=== PATIENT | female | born 1945 | race Caucasian/White ===

== ENCOUNTER 2018-05-17 22:03 | Inpatient (IN) | payer OTHER, MEDICAID, BC, MEDICARE ==
[2018-05-17 22:42] LABS: ADD MAN DIFF? NO
[2018-05-17] MEDS: SODIUM CHLORIDE 0.9% 1L BAG IV* (22:56)
[2018-05-17 23:04] LABS: ADD UMIC YES; UR ASCORBIC ACID NEGATIVE (NEGATIVE); UR BACTERIA FEW /HPF (NONE SEEN); UR BILIRUBIN (Dip) NEGATIVE (NEGATIVE); UR BLOOD (Dip) 2+ mg/dL (NEGATIVE); UR CLARITY CLOUDY (CLEAR); UR COLOR YELLOW (YELLOW); UR GLUCOSE (Dip) NEGATIVE (NEGATIVE); UR KETONES (Dip) 2+ mg/dL (NEGATIVE); UR LEUKOCYTE ESTERASE (Dip) 3+ Leu/ul (NEGATIVE); UR MUCUS FEW /HPF (NONE SEEN); UR NITRITE (Dip) NEGATIVE (NEGATIVE); UR RBC 21 /HPF (0-5); UR SPECIFIC GRAVITY (Dip) 1.023 (1.003-1.030); UR SQUAMOUS EPITHELIAL CELL FEW /HPF (FEW); UR TOTAL PROTEIN (Dip) 2+ mg/dl (NEGATIVE); UR UROBILINOGEN (Dip) NEGATIVE (NEGATIVE); UR WBC > 182 /HPF (0-5)
[2018-05-17 23:07] LABS: LACTIC ACID 1.3 mmol/L (0.5-2.0)
[2018-05-17 23:08] LABS: ALBUMIN 3.8 g/dl (3.3-4.9); ALKALINE PHOSPHATASE 71 IU/L (42-121); ANION GAP 14 (8-16); ASPARTATE AMINO TRANSFERASE 31 IU/L (15-46); BILIRUBIN,INDIRECT 0.2 mg/dl (0-1.1); BILIRUBIN,TOTAL 0.2 mg/dl (0.2-1.3); BLOOD UREA NITROGEN 15 mg/dl (7-20); CALCIUM 8.8 mg/dl (8.4-10.2); CARBON DIOXIDE 24 mmol/L (21-31); CHLORIDE 107 mmol/L (97-110); CREATININE 0.29 mg/dl (0.44-1.00); GLUCOSE 92 mg/dl (70-220); PARTIAL THROMBOPLASTIN TIME 23.6 Sec (25.0-35.0); POTASSIUM 3.7 mmol/L (3.5-5.1); PROTIME 12.2 Sec (11.9-14.9); SODIUM 141 mmol/L (135-144); TOTAL PROTEIN 6.5 g/dl (6.1-8.1)
[2018-05-17 23:12] LABS: WHITE BLOOD COUNT 8.2 10^3/ul (4.8-10.8)
[2018-05-17 23:12] LABS: BASOPHILS % 0.2 % (0.0-2.0); EOSINOPHILS % 0.1 % (0.0-7.0); HEMATOCRIT 45.9 % (37.0-47.0); HEMOGLOBIN 14.6 g/dl (12.0-16.0); LYMPHOCYTES # 1.7 10^3/ul (0.8-2.9); LYMPHOCYTES % 20.4 % (15.0-51.0); MEAN CORPUSCULAR HEMOGLOBIN 32.2 pg (29.0-33.0); MEAN CORPUSCULAR HGB CONC 31.8 g/dl (32.0-37.0); MEAN CORPUSCULAR VOLUME 101.1 fl (82.0-101.0); MONOCYTE # 0.4 10^3/ul (0.3-0.9); MONOCYTES % 4.3 % (0.0-11.0); NEUTROPHIL # 6.1 10^3/ul (1.6-7.5); NEUTROPHILS % 74.8 % (39.0-77.0); PLATELET COUNT 278 10^3/UL (140-415); RED BLOOD COUNT 4.54 10^6/ul (4.20-5.40)
[2018-05-17 23:16] LABS: ALANINE AMINOTRANSFERASE 24 IU/L (13-69)
[2018-05-17 23:18] LABS: TROPONIN-I < 0.012 ng/ml (0.000-0.120)
[2018-05-18] MEDS: morphine 2 MG INJ IV ×4 (00:12→16:58)
[2018-05-18] MEDS: ONDANSETRON 4 MG INJ IV ×3 (00:12→17:06)
[2018-05-18] MEDS ORDERED: POTASSIUM CHLORIDE 100 ML IVPB (00:30)
[2018-05-18 00:46] LABS: LACTIC ACID 1.5 mmol/L (0.5-2.0)
[2018-05-18] MEDS: CEFTRIAXONE 1 GM/50 ML (PMX) 50 ML IVPB ×2 (01:08→08:16)
[2018-05-18] MEDS: VANCOMYCIN 1 GM (PMX) 250 ML IVPB (01:08)
[2018-05-18] MEDS: CEFEPIME 2GM/50 ML (PMX) 50 ML IVPB (01:15)
[2018-05-18] MEDS ORDERED: ALPRAZOLAM 0.25 MG TAB PO (03:00)
[2018-05-18] MEDS ORDERED: NACL 0.9% 3 ML SYG IV (03:00)
[2018-05-18] MEDS: DEXTROSE 5%-0.45% NACL 1,000 ML IV ×2 (03:15→17:28)
[2018-05-18 03:25] LABS: LACTIC ACID 0.7 mmol/L (0.5-2.0)
[2018-05-18 06:31] LABS: ADD MAN DIFF? NO
[2018-05-18 06:34] LABS: BASOPHILS % 0.2 % (0.0-2.0); HEMATOCRIT 39.1 % (37.0-47.0); HEMOGLOBIN 12.7 g/dl (12.0-16.0); LYMPHOCYTES # 1.4 10^3/ul (0.8-2.9); LYMPHOCYTES % 15.4 % (15.0-51.0); MEAN CORPUSCULAR HEMOGLOBIN 32.8 pg (29.0-33.0); MEAN CORPUSCULAR HGB CONC 32.5 g/dl (32.0-37.0); MEAN PLATELET VOLUME 10.1 fl (7.4-10.4); MONOCYTE # 0.4 10^3/ul (0.3-0.9); NEUTROPHIL # 7.3 10^3/ul (1.6-7.5); PLATELET COUNT 250 10^3/UL (140-415); RED BLOOD COUNT 3.87 10^6/ul (4.20-5.40); RED CELL DISTRIBUTION WIDTH 12.8 % (11.5-14.5)
[2018-05-18 06:34] LABS: WHITE BLOOD COUNT 9.1 10^3/ul (4.8-10.8)
[2018-05-18 06:54] LABS: HEMOGLOBIN A1C 5.2 % (0-5.9)
[2018-05-18 07:20] LABS: ALANINE AMINOTRANSFERASE 25 IU/L (13-69); ALBUMIN 3.1 g/dl (3.3-4.9); ALBUMIN/GLOBULIN RATIO 1.14; ALKALINE PHOSPHATASE 63 IU/L (42-121); ANION GAP 13 (8-16); ASPARTATE AMINO TRANSFERASE 30 IU/L (15-46); BILIRUBIN,INDIRECT 0.1 mg/dl (0-1.1); BILIRUBIN,TOTAL 0.1 mg/dl (0.2-1.3); BLOOD UREA NITROGEN 7 mg/dl (7-20); CALCIUM 8.3 mg/dl (8.4-10.2); CARBON DIOXIDE 22 mmol/L (21-31); CHLORIDE 109 mmol/L (97-110); CREATININE 0.27 mg/dl (0.44-1.00); GLUCOSE 111 mg/dl (70-220); MAGNESIUM 1.5 mg/dl (1.7-2.5); POTASSIUM 3.3 mmol/L (3.5-5.1); SODIUM 141 mmol/L (135-144); TOTAL PROTEIN 5.8 g/dl (6.1-8.1)
[2018-05-18 07:25] LABS: THYROID STIMULATING HORMONE 0.714 MIU/L (0.465-4.680)
[2018-05-18] MEDS: POTASSIUM CHLORIDE (SR) 20 MEQ TAB PO (11:27)
[2018-05-18] MEDS: VENLAFAXINE (XR) 75 MG CAP PO (11:27)
[2018-05-18] MEDS: LOSARTAN 25 MG TAB PO ×2 (11:27→21:00)
[2018-05-18] MEDS ORDERED: LORAZEPAM 2 MG INJ IV (12:00)
[2018-05-18] MEDS ORDERED: BISACODYL (EC) 5 MG TAB PO (12:30)
[2018-05-18] MEDS: TRIMETHOBENZAMIDE 100 MG/ML VIAL IM (12:51)
[2018-05-18] MEDS: MAGNESIUM SULFATE 2 GM/50 ML 50 ML IVPB (12:57)
[2018-05-18] MEDS: POTASSIUM CHLORIDE 100 ML IVPB ×2 (15:32→19:16)
[2018-05-18] MEDS: DONEPEZIL 10 MG TAB PO (21:00)
[2018-05-18] MEDS: MEMANTINE 10 MG TAB PO (21:00)
[2018-05-18] MEDS: ATORVASTATIN 10 MG TAB PO (21:00)
[2018-05-18] MEDS: GABAPENTIN 300 MG CAP PO (21:00)
[2018-05-18] MEDS: QUETIAPINE 25 MG TAB PO (21:00)
[2018-05-19] MEDS: morphine 2 MG INJ IV ×5 (04:55→21:29)
[2018-05-19 06:18] LABS: ADD MAN DIFF? NO
[2018-05-19 06:39] LABS: ANION GAP 12 (8-16); BLOOD UREA NITROGEN 3 mg/dl (7-20); CALCIUM 8.1 mg/dl (8.4-10.2); CARBON DIOXIDE 21 mmol/L (21-31); CHLORIDE 110 mmol/L (97-110); CREATININE 0.19 mg/dl (0.44-1.00); GLUCOSE 109 mg/dl (70-220); MAGNESIUM 2.1 mg/dl (1.7-2.5); PHOSPHORUS 2.1 mg/dl (2.5-4.9); POTASSIUM 4.9 mmol/L (3.5-5.1); SODIUM 138 mmol/L (135-144)
[2018-05-19] MEDS: CEFTRIAXONE 1 GM/50 ML (PMX) 50 ML IVPB (08:11)
[2018-05-19] MEDS: VENLAFAXINE (XR) 75 MG CAP PO (08:11)
[2018-05-19] MEDS: LOSARTAN 25 MG TAB PO ×2 (08:11→21:00)
[2018-05-19 08:28] LABS: WHITE BLOOD COUNT 8.4 10^3/ul (4.8-10.8)
[2018-05-19 08:28] LABS: BASOPHILS % 0.2 % (0.0-2.0); EOSINOPHILS % 0.1 % (0.0-7.0); HEMOGLOBIN 13.3 g/dl (12.0-16.0); LYMPHOCYTES # 1.5 10^3/ul (0.8-2.9); MEAN CORPUSCULAR HEMOGLOBIN 32.4 pg (29.0-33.0); MEAN CORPUSCULAR HGB CONC 32.4 g/dl (32.0-37.0); MEAN CORPUSCULAR VOLUME 99.8 fl (82.0-101.0); MEAN PLATELET VOLUME 10.3 fl (7.4-10.4); MONOCYTE # 0.7 10^3/ul (0.3-0.9); MONOCYTES % 7.8 % (0.0-11.0); NEUTROPHIL # 6.2 10^3/ul (1.6-7.5); NEUTROPHILS % 73.7 % (39.0-77.0); PLATELET COUNT 246 10^3/UL (140-415); RED BLOOD COUNT 4.11 10^6/ul (4.20-5.40); RED CELL DISTRIBUTION WIDTH 12.8 % (11.5-14.5)
[2018-05-19] MEDS: ONDANSETRON 4 MG INJ IV ×4 (09:31→21:29)
[2018-05-19] MEDS: DEXTROSE 5%-0.45% NACL 1,000 ML IV ×2 (13:42→21:31)
[2018-05-19] MEDS: LEVALBUTEROL (NEB) 0.63 MG/3 ML AMP HHN (14:25)
[2018-05-19] MEDS: IPRATROPIUM (NEB) 0.5 MG/2.5 ML AMP NEB (14:25)
[2018-05-19 17:06] LABS: TRIGLYCERIDES 100 mg/dl (0-149)
[2018-05-19 17:14] LABS: PREALBUMIN 21.6 mg/dl (17.6-36.0)
[2018-05-19] MEDS: AZITHROMYCIN 500MG/NS (PMX) 250 ML IVPB (18:21)
[2018-05-19] MEDS: QUETIAPINE 25 MG TAB PO (21:00)
[2018-05-19] MEDS: ATORVASTATIN 10 MG TAB PO (21:00)
[2018-05-19] MEDS: GABAPENTIN 300 MG CAP PO (21:00)
[2018-05-19] MEDS: DONEPEZIL 10 MG TAB PO (21:00)
[2018-05-19] MEDS: MEMANTINE 10 MG TAB PO (21:00)
[2018-05-19] MEDS: CEFEPIME 2GM/50 ML (PMX) 50 ML IVPB (21:31)
[2018-05-20] MEDS: ONDANSETRON 4 MG INJ IV ×5 (01:28→18:35)
[2018-05-20] MEDS: morphine 2 MG INJ IV ×4 (01:30→14:42)
[2018-05-20] MEDS: DEXTROSE 5%-0.45% NACL 1,000 ML IV (06:39)
[2018-05-20 07:05] LABS: ADD MAN DIFF? NO
[2018-05-20 07:08] LABS: WHITE BLOOD COUNT 8.9 10^3/ul (4.8-10.8)
[2018-05-20 07:08] LABS: BASOPHILS % 0.3 % (0.0-2.0); EOSINOPHILS % 0.3 % (0.0-7.0); HEMATOCRIT 38.3 % (37.0-47.0); HEMOGLOBIN 12.6 g/dl (12.0-16.0); LYMPHOCYTES # 1.9 10^3/ul (0.8-2.9); LYMPHOCYTES % 20.7 % (15.0-51.0); MEAN CORPUSCULAR HEMOGLOBIN 32.2 pg (29.0-33.0); MEAN CORPUSCULAR HGB CONC 32.9 g/dl (32.0-37.0); MEAN PLATELET VOLUME 10.3 fl (7.4-10.4); MONOCYTE # 0.8 10^3/ul (0.3-0.9); MONOCYTES % 9.4 % (0.0-11.0); NEUTROPHIL # 6.2 10^3/ul (1.6-7.5); NEUTROPHILS % 69.1 % (39.0-77.0); PLATELET COUNT 277 10^3/UL (140-415); RED BLOOD COUNT 3.91 10^6/ul (4.20-5.40); RED CELL DISTRIBUTION WIDTH 13.2 % (11.5-14.5)
[2018-05-20] MEDS: hydrALAzine 20 MG INJ IV (08:08)
[2018-05-20 08:13] LABS: ANION GAP 8 (8-16); BLOOD UREA NITROGEN 2 mg/dl (7-20); CALCIUM 8.9 mg/dl (8.4-10.2); CARBON DIOXIDE 31 mmol/L (21-31); CHLORIDE 106 mmol/L (97-110); CREATININE 0.24 mg/dl (0.44-1.00); GLUCOSE 112 mg/dl (70-220); MAGNESIUM 1.9 mg/dl (1.7-2.5); PHOSPHORUS 1.9 mg/dl (2.5-4.9); POTASSIUM 3.1 mmol/L (3.5-5.1); SODIUM 142 mmol/L (135-144)
[2018-05-20] MEDS: VENLAFAXINE (XR) 75 MG CAP PO (08:14)
[2018-05-20] MEDS: LOSARTAN 25 MG TAB PO ×2 (08:14→21:00)
[2018-05-20] MEDS: ACCU-CHEK XX ×4 (09:00→21:00)
[2018-05-20] MEDS: METHYLPREDNISOLONE 125 MG INJ IV ×2 (13:23→22:31)
[2018-05-20] MEDS: POTASSIUM PHOSPHATE 40 MEQ in SOD CHLORIDE 0.9% 250 ML IVPB (13:26)
[2018-05-20] MEDS: LIDOCAINE 1% (MPF) 5 ML VIAL SC (14:45)
[2018-05-20] MEDS ORDERED: TPN 1,000 ML IV (18:00)
[2018-05-20] MEDS: AZITHROMYCIN 500MG/NS (PMX) 250 ML IVPB (18:18)
[2018-05-20] MEDS: TPN 1,000 ML IV (20:07)
[2018-05-20] MEDS: MEMANTINE 10 MG TAB PO (21:00)
[2018-05-20] MEDS: DONEPEZIL 10 MG TAB PO (21:00)
[2018-05-20] MEDS: QUETIAPINE 25 MG TAB PO (21:00)
[2018-05-20] MEDS: GABAPENTIN 300 MG CAP PO (21:00)
[2018-05-20] MEDS: ATORVASTATIN 10 MG TAB PO (21:00)
[2018-05-20] MEDS: CEFEPIME 2GM/50 ML (PMX) 50 ML IVPB (22:31)
[2018-05-21] MEDS: ACCU-CHEK XX ×6 (01:00→20:54)
[2018-05-21] MEDS: DEXTROSE 5%-0.45% NACL 1,000 ML IV (02:14)
[2018-05-21 07:01] LABS: ADD MAN DIFF? NO
[2018-05-21] MEDS: METHYLPREDNISOLONE 125 MG INJ IV ×3 (07:05→21:02)
[2018-05-21 07:17] LABS: HEMATOCRIT 37.9 % (37.0-47.0); HEMOGLOBIN 12.3 g/dl (12.0-16.0); LYMPHOCYTES # 0.6 10^3/ul (0.8-2.9); LYMPHOCYTES % 20.1 % (15.0-51.0); MEAN CORPUSCULAR HGB CONC 32.5 g/dl (32.0-37.0); MEAN CORPUSCULAR VOLUME 98.7 fl (82.0-101.0); MEAN PLATELET VOLUME 10.3 fl (7.4-10.4); MONOCYTE # 0.1 10^3/ul (0.3-0.9); MONOCYTES % 3.2 % (0.0-11.0); NEUTROPHIL # 2.4 10^3/ul (1.6-7.5); NEUTROPHILS % 76.1 % (39.0-77.0); PLATELET COUNT 244 10^3/UL (140-415); RED BLOOD COUNT 3.84 10^6/ul (4.20-5.40); RED CELL DISTRIBUTION WIDTH 13.3 % (11.5-14.5)
[2018-05-21 07:17] LABS: WHITE BLOOD COUNT 3.1 10^3/ul (4.8-10.8)
[2018-05-21 07:52] LABS: PHOSPHORUS 2.9 mg/dl (2.5-4.9)
[2018-05-21 07:54] LABS: ANION GAP 7 (8-16); BLOOD UREA NITROGEN 13 mg/dl (7-20); CALCIUM 8.9 mg/dl (8.4-10.2); CARBON DIOXIDE 31 mmol/L (21-31); CHLORIDE 108 mmol/L (97-110); CREATININE 0.23 mg/dl (0.44-1.00); GLUCOSE 149 mg/dl (70-220); POTASSIUM 3.5 mmol/L (3.5-5.1); SODIUM 142 mmol/L (135-144)
[2018-05-21] MEDS: LOSARTAN 25 MG TAB PO ×2 (08:06→20:52)
[2018-05-21] MEDS: VENLAFAXINE (XR) 75 MG CAP PO (08:06)
[2018-05-21] MEDS: ONDANSETRON 4 MG INJ IV ×3 (10:14→19:22)
[2018-05-21] MEDS: morphine 2 MG INJ IV ×3 (10:15→19:22)
[2018-05-21] MEDS: NYSTATIN SUSP 5 ML CUP PO ×3 (12:50→20:56)
[2018-05-21] MEDS: POTASSIUM CHLORIDE 100 ML IVPB (14:14)
[2018-05-21] MEDS: CEFEPIME 2GM/50 ML (PMX) 50 ML IVPB (20:51)
[2018-05-21] MEDS: DONEPEZIL 10 MG TAB PO (20:52)
[2018-05-21] MEDS: TPN 1,000 ML IV (20:52)
[2018-05-21] MEDS: GABAPENTIN 300 MG CAP PO (20:53)
[2018-05-21] MEDS: ATORVASTATIN 10 MG TAB PO (20:53)
[2018-05-21] MEDS: MEMANTINE 10 MG TAB PO (20:53)
[2018-05-21] MEDS: QUETIAPINE 25 MG TAB PO (20:53)
[2018-05-22] MEDS: morphine 2 MG INJ IV ×4 (00:18→21:07)
[2018-05-22] MEDS: ACCU-CHEK XX ×6 (01:00→21:00)
[2018-05-22] MEDS: METHYLPREDNISOLONE 125 MG INJ IV ×3 (05:53→21:04)
[2018-05-22 07:28] LABS: ADD MAN DIFF? NO
[2018-05-22 07:31] LABS: WHITE BLOOD COUNT 8.6 10^3/ul (4.8-10.8)
[2018-05-22 07:31] LABS: HEMATOCRIT 33.4 % (37.0-47.0); LYMPHOCYTES # 0.7 10^3/ul (0.8-2.9); LYMPHOCYTES % 8.2 % (15.0-51.0); MEAN CORPUSCULAR HEMOGLOBIN 32.8 pg (29.0-33.0); MEAN CORPUSCULAR HGB CONC 32.9 g/dl (32.0-37.0); MEAN CORPUSCULAR VOLUME 99.7 fl (82.0-101.0); MEAN PLATELET VOLUME 10.5 fl (7.4-10.4); MONOCYTE # 0.4 10^3/ul (0.3-0.9); MONOCYTES % 4.1 % (0.0-11.0); NEUTROPHIL # 7.5 10^3/ul (1.6-7.5); NEUTROPHILS % 87.2 % (39.0-77.0); PLATELET COUNT 233 10^3/UL (140-415); RED BLOOD COUNT 3.35 10^6/ul (4.20-5.40); RED CELL DISTRIBUTION WIDTH 13.7 % (11.5-14.5)
[2018-05-22 07:52] LABS: ANION GAP 8 (8-16); BLOOD UREA NITROGEN 21 mg/dl (7-20); CALCIUM 9.4 mg/dl (8.4-10.2); CARBON DIOXIDE 32 mmol/L (21-31); CHLORIDE 106 mmol/L (97-110); CREATININE 0.32 mg/dl (0.44-1.00); GLUCOSE 124 mg/dl (70-220); MAGNESIUM 2.2 mg/dl (1.7-2.5); PHOSPHORUS 3.1 mg/dl (2.5-4.9); SODIUM 142 mmol/L (135-144)
[2018-05-22] MEDS: LOSARTAN 25 MG TAB PO ×2 (08:20→21:00)
[2018-05-22] MEDS: VENLAFAXINE (XR) 75 MG CAP PO (08:21)
[2018-05-22] MEDS: NYSTATIN SUSP 5 ML CUP PO ×4 (09:22→21:04)
[2018-05-22] MEDS: ONDANSETRON 4 MG INJ IV ×3 (10:29→21:04)
[2018-05-22] MEDS: QUETIAPINE 25 MG TAB PO (21:00)
[2018-05-22] MEDS: GABAPENTIN 300 MG CAP PO (21:00)
[2018-05-22] MEDS: MEMANTINE 10 MG TAB PO (21:00)
[2018-05-22] MEDS: ATORVASTATIN 10 MG TAB PO (21:00)
[2018-05-22] MEDS: DONEPEZIL 10 MG TAB PO (21:00)
[2018-05-22] MEDS: TPN 1,000 ML IV (21:05)
[2018-05-22] MEDS: CEFEPIME 2GM/50 ML (PMX) 50 ML IVPB (21:05)
[2018-05-23] MEDS: morphine 2 MG INJ IV ×2 (05:06→11:44)
[2018-05-23] MEDS: METHYLPREDNISOLONE 125 MG INJ IV ×3 (05:33→21:22)
[2018-05-23 06:13] LABS: ADD MAN DIFF? NO
[2018-05-23 06:15] LABS: WHITE BLOOD COUNT 5.1 10^3/ul (4.8-10.8)
[2018-05-23 06:15] LABS: HEMOGLOBIN 11.4 g/dl (12.0-16.0); LYMPHOCYTES # 0.7 10^3/ul (0.8-2.9); LYMPHOCYTES % 14.1 % (15.0-51.0); MEAN CORPUSCULAR HEMOGLOBIN 32.5 pg (29.0-33.0); MEAN CORPUSCULAR HGB CONC 32.6 g/dl (32.0-37.0); MEAN CORPUSCULAR VOLUME 99.7 fl (82.0-101.0); MEAN PLATELET VOLUME 10.5 fl (7.4-10.4); MONOCYTE # 0.3 10^3/ul (0.3-0.9); MONOCYTES % 5.1 % (0.0-11.0); NEUTROPHIL # 4.1 10^3/ul (1.6-7.5); NEUTROPHILS % 80.2 % (39.0-77.0); PLATELET COUNT 220 10^3/UL (140-415); RED BLOOD COUNT 3.51 10^6/ul (4.20-5.40); RED CELL DISTRIBUTION WIDTH 13.6 % (11.5-14.5)
[2018-05-23 06:41] LABS: MAGNESIUM 2.3 mg/dl (1.7-2.5)
[2018-05-23 06:41] LABS: PHOSPHORUS 3.7 mg/dl (2.5-4.9)
[2018-05-23 06:48] LABS: ANION GAP 7 (8-16); BLOOD UREA NITROGEN 22 mg/dl (7-20); CALCIUM 9.2 mg/dl (8.4-10.2); CARBON DIOXIDE 31 mmol/L (21-31); CHLORIDE 106 mmol/L (97-110); CREATININE 0.25 mg/dl (0.44-1.00); GLUCOSE 135 mg/dl (70-220); POTASSIUM 4.2 mmol/L (3.5-5.1); SODIUM 140 mmol/L (135-144)
[2018-05-23] MEDS: ACCU-CHEK XX ×2 (09:00→21:00)
[2018-05-23] MEDS: NYSTATIN SUSP 5 ML CUP PO ×4 (09:45→20:45)
[2018-05-23] MEDS: LOSARTAN 25 MG TAB PO ×2 (09:45→20:57)
[2018-05-23] MEDS: VENLAFAXINE (XR) 75 MG CAP PO (09:45)
[2018-05-23] MEDS: ONDANSETRON 4 MG INJ IV (11:48)
[2018-05-23] MEDS: TPN 1,000 ML IV (20:45)
[2018-05-23] MEDS: CEFEPIME 2GM/50 ML (PMX) 50 ML IVPB (20:45)
[2018-05-23] MEDS: DONEPEZIL 10 MG TAB PO (20:57)
[2018-05-23] MEDS: GABAPENTIN 300 MG CAP PO (20:57)
[2018-05-23] MEDS: ATORVASTATIN 10 MG TAB PO (20:57)
[2018-05-23] MEDS: MEMANTINE 10 MG TAB PO (20:57)
[2018-05-23] MEDS: QUETIAPINE 25 MG TAB PO (20:58)
[2018-05-24 06:42] LABS: ANION GAP 6 (8-16); BLOOD UREA NITROGEN 26 mg/dl (7-20); CALCIUM 8.9 mg/dl (8.4-10.2); CARBON DIOXIDE 33 mmol/L (21-31); CHLORIDE 104 mmol/L (97-110); CREATININE 0.29 mg/dl (0.44-1.00); GLUCOSE 125 mg/dl (70-220); MAGNESIUM 2.2 mg/dl (1.7-2.5); PHOSPHORUS 3.7 mg/dl (2.5-4.9); POTASSIUM 4.2 mmol/L (3.5-5.1); SODIUM 139 mmol/L (135-144)
[2018-05-24] MEDS: ACCU-CHEK XX (08:20)
[2018-05-24] MEDS: NYSTATIN SUSP 5 ML CUP PO ×4 (08:30→21:00)
[2018-05-24] MEDS: LOSARTAN 25 MG TAB PO ×2 (08:31→21:01)
[2018-05-24] MEDS: VENLAFAXINE (XR) 75 MG CAP PO (08:31)
[2018-05-24] MEDS: CEFEPIME 2GM/50 ML (PMX) 50 ML IVPB (21:00)
[2018-05-24] MEDS: ATORVASTATIN 10 MG TAB PO (21:00)
[2018-05-24] MEDS: GABAPENTIN 300 MG CAP PO (21:00)
[2018-05-24] MEDS: QUETIAPINE 25 MG TAB PO (21:00)
[2018-05-24] MEDS: MEMANTINE 10 MG TAB PO (21:01)
[2018-05-24] MEDS: DONEPEZIL 10 MG TAB PO (21:01)
[2018-05-25] MEDS: NYSTATIN SUSP 5 ML CUP PO (09:55)
[2018-05-25] MEDS: LOSARTAN 25 MG TAB PO (09:55)
[2018-05-25] MEDS: VENLAFAXINE (XR) 75 MG CAP PO (09:55)
[2018-05-25 11:39] LABS: ANION GAP 8 (8-16); BLOOD UREA NITROGEN 19 mg/dl (7-20); CALCIUM 8.4 mg/dl (8.4-10.2); CARBON DIOXIDE 31 mmol/L (21-31); CHLORIDE 103 mmol/L (97-110); CREATININE 0.33 mg/dl (0.44-1.00); GLUCOSE 101 mg/dl (70-220); PHOSPHORUS 3.4 mg/dl (2.5-4.9); POTASSIUM 3.8 mmol/L (3.5-5.1); SODIUM 138 mmol/L (135-144)
== END 2018-05-25 16:50 | disposition home or self-care (01) | DRG 154 ==
LOC: E/R 22:03 → TEL 05-18 00:37 → PP2 05-25 01:36
PROC: 02HV33Z Insertion of Infusion Device into Superior Vena Cava, Percutaneous Approach (ICD-10-PCS; principal; 2018-05-20)
PROC: 3E0436Z Introduction of Nutritional Substance into Central Vein, Percutaneous Approach (ICD-10-PCS; 2018-05-20)
PROC: 5A09457 Assistance with Respiratory Ventilation, 24-96 Consecutive Hours, Continuous Positive Airway Pressure (ICD-10-PCS; 2018-05-20)
DX: H92.02 Otalgia, left ear (principal); J96.01 Acute respiratory failure with hypoxia; J69.0 Pneumonitis due to inhalation of food and vomit; N39.0 Urinary tract infection, site not specified; G12.21 Amyotrophic lateral sclerosis; G93.49 Other encephalopathy; G82.20 Paraplegia, unspecified; B37.0 Candidal stomatitis; B96.5 Pseudomonas (aeruginosa) (mallei) (pseudomallei) as the cause of diseases classified elsewhere; E78.5 Hyperlipidemia, unspecified; F02.80 Dementia in other diseases classified elsewhere, unspecified severity, without behavioral disturbance, psychotic disturbance, mood disturbance, and anxiety; I10 Essential (primary) hypertension; K21.9 Gastro-esophageal reflux disease without esophagitis; M26.622 Arthralgia of left temporomandibular joint; R13.19 Other dysphagia; R07.0 Pain in throat; Z96.641 Presence of right artificial hip joint; Z74.01 Bed confinement status; Z99.89 Dependence on other enabling machines and devices
CPT/HCPCS: 36415; 36569; 70450; 71045; 76937; 80048; 80053; 81001; 82962; 83036; 83605; 83735; 84100; 84134; 84443; 84478; 84484; 85025; 85610; 85730; 87040; 87086; 92526; 92610; 93005; 93970; 94660; 94664; 96374; 96375; 99291-25

== ENCOUNTER 2018-09-17 13:18 | Emergency (ER) | payer SELFPAY, MEDICAID, OTHER | END 2018-09-17 15:31 | disposition left against medical advice (07) | LOC: E/R 15:31 | DX: Z53.21 Procedure and treatment not carried out due to patient leaving prior to being seen by health care provider (principal) ==

== ENCOUNTER 2018-09-19 20:47 | Inpatient (IN) | payer OTHER, MEDICAID ==
[2018-09-19] MEDS: ALBUTEROL 0.5% (NEB) 2.5 MG/0.5 ML AMP INH (21:33)
[2018-09-19] MEDS: IPRATROPIUM (NEB) 0.5 MG/2.5 ML AMP INH (21:33)
[2018-09-19 21:35] LABS: ADD MAN DIFF? NO
[2018-09-19 21:37] LABS: BASOPHILS % 0.2 % (0.0-2.0); EOSINOPHILS % 0.1 % (0.0-7.0); HEMATOCRIT 41.2 % (37.0-47.0); HEMOGLOBIN 12.3 g/dl (12.0-16.0); LYMPHOCYTES % 7.6 % (15.0-51.0); MEAN CORPUSCULAR HEMOGLOBIN 28.5 pg (29.0-33.0); MEAN CORPUSCULAR HGB CONC 29.9 g/dl (32.0-37.0); MEAN CORPUSCULAR VOLUME 95.4 fl (82.0-101.0); MEAN PLATELET VOLUME 9.2 fl (7.4-10.4); MONOCYTE # 0.5 10^3/ul (0.3-0.9); MONOCYTES % 4.1 % (0.0-11.0); NEUTROPHIL # 11.1 10^3/ul (1.6-7.5); NEUTROPHILS % 87.4 % (39.0-77.0); PLATELET COUNT 703 10^3/UL (140-415); RED BLOOD COUNT 4.32 10^6/ul (4.20-5.40); RED CELL DISTRIBUTION WIDTH 13.8 % (11.5-14.5)
[2018-09-19 21:37] LABS: WHITE BLOOD COUNT 12.7 10^3/ul (4.8-10.8)
[2018-09-19] MEDS: DEXAMETHASONE 10 MG/ML 1 ML INJ IV (22:00)
[2018-09-19 22:01] LABS: ALBUMIN/GLOBULIN RATIO 0.97; ALKALINE PHOSPHATASE 151 IU/L (42-121); ANION GAP 12 (5-13); ASPARTATE AMINO TRANSFERASE 21 IU/L (15-46); BLOOD UREA NITROGEN 10 mg/dl (7-20); CALCIUM 10.4 mg/dl (8.4-10.2); CARBON DIOXIDE 31 mmol/L (21-31); CHLORIDE 98 mmol/L (97-110); CREATININE 0.46 mg/dl (0.44-1.00); GLUCOSE 130 mg/dl (70-220); POTASSIUM 3.8 mmol/L (3.5-5.1); SODIUM 141 mmol/L (135-144); TOTAL PROTEIN 8.1 g/dl (6.1-8.1)
[2018-09-19 22:04] LABS: INR 1.05; PROTIME 13.8 Sec (11.9-14.9); PT RATIO 1.1
[2018-09-19 22:05] LABS: PARTIAL THROMBOPLASTIN TIME 31.9 Sec (23.0-35.0)
[2018-09-19 22:09] LABS: ALANINE AMINOTRANSFERASE < 6 IU/L (13-69)
[2018-09-19 22:13] LABS: B-TYPE NATRIURETIC PEPTIDE 423 PG/ML (0-125); TROPONIN-I 0.015 ng/ml (0.000-0.120)
[2018-09-19 22:15] LABS: ADD UMIC YES; UR ASCORBIC ACID NEGATIVE (NEGATIVE); UR BACTERIA FEW /HPF (NONE SEEN); UR BILIRUBIN (Dip) NEGATIVE (NEGATIVE); UR BLOOD (Dip) 1+ mg/dL (NEGATIVE); UR CLARITY SLIGHTLY CLOUDY (CLEAR); UR COLOR YELLOW (YELLOW); UR GLUCOSE (Dip) NEGATIVE (NEGATIVE); UR KETONES (Dip) NEGATIVE (NEGATIVE); UR LEUKOCYTE ESTERASE (Dip) 3+ Leu/ul (NEGATIVE); UR NITRITE (Dip) NEGATIVE (NEGATIVE); UR RBC 30 /HPF (0-5); UR SPECIFIC GRAVITY (Dip) 1.006 (1.003-1.030); UR TOTAL PROTEIN (Dip) NEGATIVE (NEGATIVE); UR UROBILINOGEN (Dip) NEGATIVE (NEGATIVE); UR WBC 78 /HPF (0-5)
[2018-09-19] MEDS ORDERED: NACL 0.9% 3 ML SYG IV (22:30)
[2018-09-19] MEDS ORDERED: ONDANSETRON 4 MG INJ IV (22:30)
[2018-09-19] MEDS: PIPER-TAZO 3.375 GM IV (PMX) 100 ML IVPB (23:10)
[2018-09-19] MEDS: IPRATROPIUM (NEB) 0.5 MG/2.5 ML AMP HHN (23:59)
[2018-09-19] MEDS: LEVALBUTEROL (NEB) 1.25 MG/0.5 ML AMP HHN (23:59)
[2018-09-20 01:26] LABS: LACTIC ACID 1.6 mmol/L (0.5-2.0)
[2018-09-20] MEDS: SOD CHLORIDE 0.9% 1,000 ML IV ×4 (03:06→23:26)
[2018-09-20 04:05] LABS: ADD MAN DIFF? NO
[2018-09-20 04:09] LABS: ABNORMAL IP MESSAGE 1; BASOPHILS % 0.1 % (0.0-2.0); HEMATOCRIT 33.4 % (37.0-47.0); HEMOGLOBIN 10.3 g/dl (12.0-16.0); LYMPHOCYTES # 0.5 10^3/ul (0.8-2.9); LYMPHOCYTES % 3.2 % (15.0-51.0); MEAN CORPUSCULAR HEMOGLOBIN 29.3 pg (29.0-33.0); MEAN CORPUSCULAR HGB CONC 30.8 g/dl (32.0-37.0); MEAN CORPUSCULAR VOLUME 94.9 fl (82.0-101.0); MEAN PLATELET VOLUME 9.1 fl (7.4-10.4); MONOCYTE # 0.2 10^3/ul (0.3-0.9); MONOCYTES % 1.3 % (0.0-11.0); NEUTROPHIL # 13.4 10^3/ul (1.6-7.5); NEUTROPHILS % 94.7 % (39.0-77.0); PLATELET COUNT 600 10^3/UL (140-415); RED BLOOD COUNT 3.52 10^6/ul (4.20-5.40); RED CELL DISTRIBUTION WIDTH 13.8 % (11.5-14.5)
[2018-09-20 04:09] LABS: WHITE BLOOD COUNT 14.2 10^3/ul (4.8-10.8)
[2018-09-20 04:14] LABS: POSITIVE DIFF @See below
[2018-09-20 04:17] LABS: HEMOGLOBIN A1C 5.4 % (0-5.9)
[2018-09-20 04:29] LABS: ALBUMIN 3.4 g/dl (3.3-4.9); ALKALINE PHOSPHATASE 115 IU/L (42-121); ANION GAP 12 (5-13); ASPARTATE AMINO TRANSFERASE 17 IU/L (15-46); BLOOD UREA NITROGEN 11 mg/dl (7-20); CALCIUM 9.8 mg/dl (8.4-10.2); CARBON DIOXIDE 30 mmol/L (21-31); CHLORIDE 100 mmol/L (97-110); CREATININE 0.43 mg/dl (0.44-1.00); GLUCOSE 162 mg/dl (70-220); POTASSIUM 3.7 mmol/L (3.5-5.1); SODIUM 142 mmol/L (135-144); TOTAL PROTEIN 6.8 g/dl (6.1-8.1)
[2018-09-20 04:30] LABS: ALANINE AMINOTRANSFERASE < 6 IU/L (13-69)
[2018-09-20 04:30] LABS: D-DIMER 1316.96 ng/ml (<460)
[2018-09-20] MEDS ORDERED: ENOXAPARIN 40 MG/0.4 ML SYG SC (05:00)
[2018-09-20] MEDS: LEVALBUTEROL (NEB) 1.25 MG/0.5 ML AMP HHN ×6 (05:44→20:57)
[2018-09-20] MEDS: IPRATROPIUM (NEB) 0.5 MG/2.5 ML AMP HHN ×6 (05:44→20:57)
[2018-09-20] MEDS: PIPER-TAZO 3.375 GM IV (PMX) 100 ML IVPB ×4 (05:56→23:56)
[2018-09-20] MEDS: ENOXAPARIN 40 MG/0.4 ML SYG SC ×2 (06:14→22:02)
[2018-09-20] MEDS ORDERED: ALPRAZOLAM 0.25 MG TAB PO (08:30)
[2018-09-20] MEDS: ACETYLCYSTEINE 20% 4 ML VIAL NEB ×3 (08:40→20:54)
[2018-09-20] MEDS: SOD CHLORIDE 0.9% 100 ML (09:09)
[2018-09-20] MEDS: IOHEXOL 100 ML (09:09)
[2018-09-20] MEDS: PANTOPRAZOLE SODIUM 20 MG TABEC PO ×2 (10:09→17:32)
[2018-09-20] MEDS: NYSTATIN SUSP 5 ML CUP PO ×4 (10:09→21:51)
[2018-09-20] MEDS: LOSARTAN 25 MG TAB PO ×2 (10:10→21:52)
[2018-09-20] MEDS: METOPROLOL 5 MG INJ IV (10:11)
[2018-09-20] MEDS: ATORVASTATIN 10 MG TAB PO (21:51)
[2018-09-20] MEDS: MEMANTINE 10 MG TAB PO (21:51)
[2018-09-20] MEDS: GABAPENTIN 300 MG CAP PO (21:51)
[2018-09-21] MEDS: IPRATROPIUM (NEB) 0.5 MG/2.5 ML AMP HHN ×5 (01:00→17:00)
[2018-09-21] MEDS: LEVALBUTEROL (NEB) 1.25 MG/0.5 ML AMP HHN ×5 (01:00→17:00)
[2018-09-21] MEDS: ACETYLCYSTEINE 20% 4 ML VIAL NEB (02:00)
[2018-09-21] MEDS: PIPER-TAZO 3.375 GM IV (PMX) 100 ML IVPB ×3 (06:07→18:17)
[2018-09-21] MEDS: LANSOPRAZOLE 30 MG CAP PO ×2 (06:07→18:00)
[2018-09-21] MEDS: NYSTATIN SUSP 5 ML CUP PO ×3 (10:15→17:00)
[2018-09-21] MEDS: LOSARTAN 25 MG TAB PO (10:15)
[2018-09-21] MEDS: ENOXAPARIN 40 MG/0.4 ML SYG SC (10:28)
[2018-09-21] MEDS: METOPROLOL 5 MG INJ IV (10:54)
[2018-09-21] MEDS: SOD CHLORIDE 0.9% 1,000 ML IV (11:56)
[2018-09-26] MEDS ORDERED: ALENDRONATE 70 MG TAB PO (06:00)
== END 2018-09-21 19:46 | disposition hospice, home (50) | DRG 871 ==
LOC: TEL 22:18 → E/R 20:47
PROVIDERS: Family Medicine
DX: A41.9 Sepsis, unspecified organism (principal); J69.0 Pneumonitis due to inhalation of food and vomit; N39.0 Urinary tract infection, site not specified; G12.21 Amyotrophic lateral sclerosis; R06.03 Acute respiratory distress; G30.9 Alzheimer's disease, unspecified; F02.80 Dementia in other diseases classified elsewhere, unspecified severity, without behavioral disturbance, psychotic disturbance, mood disturbance, and anxiety; F32.9 Major depressive disorder, single episode, unspecified; M81.0 Age-related osteoporosis without current pathological fracture; I10 Essential (primary) hypertension; K21.9 Gastro-esophageal reflux disease without esophagitis; E78.5 Hyperlipidemia, unspecified; F41.9 Anxiety disorder, unspecified; Z66 Do not resuscitate; Z86.718 Personal history of other venous thrombosis and embolism; Z87.11 Personal history of peptic ulcer disease
CPT/HCPCS: 36415; 71045; 71250; 71275; 74176; 80053; 81001; 83036; 83605; 83880; 84484; 85025; 85378; 85610; 85730; 87040; 87086; 92610; 93005; 93970; 94640; 94644; 94664; 96374; 99285-25; G0378